=== PATIENT | female | born 1955 | race Two or more races ===

== ENCOUNTER 2025-04-29 18:36 | Emergency (ER) | payer OTHER ==
[~2025-04-29] VITALS: Ht 172.7 cm; Wt 181.5 kg
--- NOTE | 2025-04-29 18:53 | ED.PDOC ---
History of Present Illness HPI Comments 69 year old female who presents to the emergency department after a fall. She states she slid out of her chair was unable to get up. She has some mild pain in her tailbone. Patient has extensive bilateral lower extremity erythema, drainage, odor. Patient is currently not taking antibiotics for this. Patient normally walks with a walker. She has a history of degenerative disc disease and fibromyalgia. Denies history of IV trauma hypertension, hyperlipidemia. REVIEW OF SYSTEMS: General: No fever, no chills, or fatigue HEENT: No sore throat, no earache, no congestion, no neck pain. Cardiac: No chest pain. No palpitations. Lungs: No shortness of breath, no cough. GI: No nausea, no vomiting, no diarrhea, no constipation, no abdominal pain : No dysuria, frequency, or urgency. No hematuria. Musculoskeletal: positive bilateral lower extremity edema, positive low back pain Skin: No rash, no itching. Neuro: No headache, no dizziness, no weakness PHYSICAL EXAM: General: Awake, alert and oriented. No acute distress. Skin: Skin in warm, dry and intact without rashes or lesions. HEENT: The head is normocephalic and atraumatic. Conjunctivae are clear without exudates or hemorrhage. Sclera is non-icteric. Neck: Normal range of motion. No JVD. Cardiac: Regular rate Respiratory: No signs of respiratory distress. No Stridor. Extremities: B/l LE are erythematous with, purulent discharge and odor. B/L LE edema Neurological: The patient is awake, alert and oriented to person, place, and time with normal speech. Speech is clear. There is no facial asymmetry. Psychiatric: Appropriate mood and affect. Good judgement and insight. Chief Complaint: Wound Check Time Seen by MD: 18:42 Allergies: Coded Allergies: Penicillins (Verified Allergy, Mild, 04/29/25) Was a procedure done? Was a procedure done?: No EKG EKG : Comments Sinus at a rate of 97, no STEMI. QTC 421 Differential Dx Considerations may include: Differential diagnoses considered include but are not limited to closed head injury, skull fracture, TBI, long bone fracture, rib fracture, pneumothorax, spinal fracture, spinal injury, cardiac contusion, organ laceration, pelvic fracture, laceration, soft tissue injury, vascular injury, other X-Ray, Labs, Meds, VS Vital Signs Date Time Temp Pulse Resp B/P (MAP) Pulse Ox O2 Delivery O2 Flow Rate FiO2 04/29/25 23:25 98.9 96 16 118/58 (78) 98.9 04/29/25 22:50 98 12 147/70 04/29/25 20:44 97 04/29/25 20:00 108 04/29/25 19:30 98.1 106 20 128/75 (92) 98 98.1 04/29/25 19:30 106 20 98 Room Air* 0 21 04/29/25 18:48 97.9 112 16 116/70 97 97.9 Lab Test 04/29/25 19:04 Range/Units White Blood Count 11.4 H 4.4-10.8 10^3/uL Red Blood Count 5.01 4.0-5.20 10^6/uL Hemoglobin 16.0 12.2-16.2 g/dL Hematocrit 47.0 H 36.0-46.0 % Mean Corpuscular Volume 93.9 80.0-100.0 fL Mean Corpuscular Hemoglobin 32.0 28.0-32.0 pg Mean Corpuscular Hemoglobin Concent 34.0 32.0-36.0 g/dL Red Cell Distribution Width 13.9 11.8-14.3 % Platelet Count 396 140-450 10^3/uL Mean Platelet Volume 7.2 6.9-10.8 fL Neutrophils (%) (Auto) 78.3 37.0-80.0 % Lymphocytes (%) (Auto) 13.3 10.0-50.0 % Monocytes (%) (Auto) 6.7 0.0-12.0 % Eosinophils (%) (Auto) 1.2 0.0-7.0 % Basophils (%) (Auto) 0.5 0.0-2.0 % Neutrophils # (Auto) 8.9 H 1.6-8.6 10 ^3/uL Lymphocytes # (Auto) 1.5 0.4-5.4 10 ^3/uL Monocytes # (Auto) 0.8 0-1.3 10 ^3/uL Eosinophils # (Auto) 0.1 0-0.8 10 ^3/uL Basophils # (Auto) 0.1 0-0.2 10 ^3/uL Nucleated Red Blood Cells 0.2 % Sodium Level 128 L 136-145 mmol/L Potassium Level 5.5 H 3.5-5.1 mmol/L Chloride Level 98 98-107 mmol/L Carbon Dioxide Level 22 20-31 mmol/L Anion Gap 8 5-15 Blood Urea Nitrogen 31 H 9-23 mg/dL Creatinine 1.51 H 0.550-1.02 mg/dL Glomerular Filtration Rate Calc 37 >90 mL/min BUN/Creatinine Ratio 20.5 H 10.0-20.0 Serum Glucose 161 H 74-106 mg/dL Lactic Acid Level 1.6 0.4-2.0 mmol/L Calcium Level 10.0 8.7-10.4 mg/dL Microbiology Date/Time Source Procedure Growth Status 04/29/25 19:14 Blood Blood Culture - Final NO GROWTH AFTER 5 DAYS OF INCUBATION. Complete 04/29/25 19:04 Blood Blood Culture - Final NO GROWTH AFTER 5 DAYS OF INCUBATION. Complete Time of 1ST Reevaluation: 20:11 Reevaluation 1ST: Unchanged Patient Education/Counseling: Other (NEED FOR ADMISSION) Family Education/Counseling: Other (NEED FOR ADMISSION) SEPSIS Sepsis Screen Physician Orders Electrocardigram (04/29/25 20:15) Ls Spine Wo Contrast (04/29/25 20:15) Imaging Transfer Request (04/29/25 20:54) Vital Signs Date Time Temp Pulse Resp B/P (MAP) Pulse Ox O2 Delivery O2 Flow Rate FiO2 04/29/25 23:25 98.9 96 16 118/58 (78) 98.9 04/29/25 22:50 98 12 147/70 04/29/25 20:44 97 04/29/25 20:00 108 04/29/25 19:30 98.1 106 20 128/75 (92) 98 98.1 04/29/25 19:30 106 20 98 Room Air* 0 21 04/29/25 18:48 97.9 112 16 116/70 97 97.9 Laboratory Tests Test 04/29/25 19:04 Lactic Acid Level 1.6 mmol/L (0.4-2.0) White Blood Count 11.4 10^3/uL (4.4-10.8) H Departure 1 Departure Time of Disposition: 18:51 Impression: Primary Impression: Cellulitis Additional Impressions: Acute renal failure Hyponatremia Hyperkalemia Disposition: ADMITTED INPATIENT Condition: Serious Comments MDM: 69-year-old female who presented to the emergency department via EMS with fall, unable to get up Patient is started on IV clindamycin and IV fluids in the emergency department Lokelma was administered for potassium of 5.[address] Murguia @[phone] Extensive evaluation was performed in attempt to identify or rule out: (See differential diagnosis section) The following tests were ordered, and results were reviewed by me and discussed with patient: (See diagnostic results section) The following test were independently interpreted by me: N/A I reviewed and agreed with the following test results read by other providers: N/A I reviewed the following notes from the pt's past medical encounters: N/A Additional information was gathered from interviewing the following independent historians: EMS personnel, patient's daughter and at bedside Discussion of management or test interpretation with external physician/other qualified health pet caregiver: Dr. Murguia Addressed an acute or chronic illness that poses a threat to life or bodily function: Cellulitis, Acute kidney injury, hyperkalemia, hyponatremia Decision regarding hospitalization or escalation of hospital level of care: Risk and benefits of admission for further treatment of patient's condition was considered. Due to patient's current clinical condition, high risk of decline and poor outcome if discharged and need for further inpatient management and monitoring, patient will be admitted to the hospital. Drug therapy requiring intensive monitoring for toxicity: N/A Parenteral controlled substances: N/A Decision regarding elective major surgery with identified patient or procedure risk factors: N/A Decision regarding emergency major surgery: N/A Decision not to resuscitate or to de-escalate care because of poor prognosis: N/A Diagnosis or treatment significantly limited by social determinants of health: N/A Critical Care Note Critical Care Time?: No Stability Stability form required: JACOB Frost MD Apr 29, 2025 18:53
[2025-04-29 19:29] LABS: Hematocrit 47.0 % (36.0-46.0); Hemoglobin 16.0 g/dL (12.2-16.2); Mean Corpuscular Hemoglobin 32.0 pg (28.0-32.0); Mean Corpuscular Volume 93.9 fL (80.0-100.0); Nucleated Red Blood Cells % 0.2 %
[2025-04-29 19:30] VITALS: PULSE 106; RESP 20; O2SAT 98
[2025-04-29 19:35] LABS: Anion Gap 8 (5-15); Carbon Dioxide 22 mmol/L (20-31)
[2025-04-29 19:36] LABS: Calcium 10.0 mg/dL (8.7-10.4)
[2025-04-29 19:41] LABS: BUN/Creatinine Ratio 20.5 (10.0-20.0)
[2025-04-29 19:44] LABS: Blood Urea Nitrogen 31 mg/dL (9-23); Chloride 98 mmol/L (98-107); Glucose 161 mg/dL (74-106); Potassium 5.5 mmol/L (3.5-5.1); Sodium 128 mmol/L (136-145)
[2025-04-29] MEDS: SODIUM CHLORIDE 0.9% 1,000 ML IV ONE (20:33)
[2025-04-29] MEDS: CLINDAMYCIN 600MG IV 50 ML IV ONE (20:35)
[2025-04-29] MEDS: SODIUM ZIRCONIUM CYCL 10 GM PAK PO ONE (20:37)
[2025-04-29] MEDS: IBUPROFEN 600 MG TAB PO ONE (21:02)
[2025-04-29] MEDS: ACETAMINOPHEN 325 MG TAB PO ONE (21:03)
--- NOTE | 2025-04-29 22:45 | DVH ---
CT LS SPINE WO CONTRAST INDICATION: Pain status post fall EXAM DATE: 04/29/2025 10:05 PM COMPARISON: None RADIATION DOSE: CTDIvol: 38.94 mGy, DLP: 1418.45 mGy*cm PROCEDURE: Utilizing the CT scanner, contiguous axial scans were obtained through the lumbar spine. C oronal and sagittal reformatted images were then generated. All CT scans at this medical facility are performed using dose modulation techniques as appropriate t o a performed exam including the following: Automated exposure control was utilized; adjustment of th e MA and/or KV according to patient size; and use of iterative reconstruction technique. FINDINGS: No acute displaced fracture. Heterogeneous appearance of the osseous structures. Multilevel schmorl's nodes are seen. A nonspecif ic lucency is seen within the L3 vertebral body. Multilevel degenerative changes of the lumbar spine characterized by endplate osteophytosis intervert ebral disc space narrowing. Mild retrolisthesis of L5 on S1. Advanced degenerative changes of the hips. The paraspinal soft tissues are unremarkable. At L1-2, a disc protrusion effaces the thecal sac. At L2-3, a broad-based disc protrusion effaces the thecal sac. There is facet arthropathy. At L3-4, a broad-based disc protrusion effaces the thecal sac. Facet arthropathy and ligamentum flav um hypertrophy are also present. There is at least mild spinal canal and mild bilateral neural forami nal narrowing. At L4-5, a disc protrusion effaces the thecal sac. There is facet arthropathy. There is severe spinal stenosis and severe bilateral neural foraminal stenosis. At L5-S1, there is retrolisthesis with effacement of the thecal sac. There is facet arthropathy and s evere bilateral neural foraminal stenosis. IMPRESSION: 1. No acute displaced fracture. 2. Heterogeneous appearance of the osseous structures, possibly referable to osteopenia, however neop lastic processes cannot be entirely excluded. Further clinical correlation is suggested. 3. Degenerative changes of the lumbar spine as detailed, most pronounced at L4-5. If clinical sympto ms persist, MRI may be beneficial in further evaluation.
[2025-04-29] MEDS: MORPHINE SULFATE INJ 2 MG/ml SYRG IV ONE (22:50)
[2025-04-29 23:25] VITALS: BP 118/58; PULSE 96; RESP 16; TEMP 98.9
--- NOTE | 2025-05-03 20:33 | ECG ---
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
== END 2025-04-29 23:15 | disposition short-term general hospital (02) ==
LOC: ER 18:36 → EDBD 18:36 → ER 23:15
DX: N17.9 Acute kidney failure, unspecified (principal); E87.5 Hyperkalemia; E87.1 Hypo-osmolality and hyponatremia; L03.90 Cellulitis, unspecified; Z88.0 Allergy status to penicillin
CPT/HCPCS: 36415; 72131; 80048; 83605; 85025; 87040; 93005; 96361; 96365; 96375; 99285; J2270; J3490; J7030